=== PATIENT | male | born 1960 ===

== ENCOUNTER → 2018-01-16 | Outpatient (CLI) | payer OTHER ==
[2018-01-16 11:59] LABS: PLATELET COUNT, AUTOMATED 303 K/uL (150-450)
--- NOTE | 2018-01-16 13:58 | EKG ---
FACILITY: PATIENT NAME: HOLLIS ALONZO : [id number] MR: [id number] V: [id number] EXAM DATE: ORDERING PHYSICIAN: chester TECHNOLOGIST: MITA Howard Reason : PRE-OP Blood Pressure : / mmHG Vent. Rate : 073 BPM Atrial Rate : 073 BPM P-R Int : 142 ms QRS Dur : 080 ms QT Int : 386 ms P-R-T Axes : 022 -06 045 degrees QTc Int : 425 ms Sinus rhythm Borderline left axis No acute appearing findings No previous ECGs available Confirmed by RENETTA LACKEY ([id number]) on 01/16/2018 3:50:14 PM Referred By: CHESTER Confirmed By:RENETTA LACKEY
== END ==
LOC: LAB 11:43
PROVIDERS: ATTEND Anesthesiology
DX: Z01.812 Encounter for preprocedural laboratory examination (principal); Z01.810 Encounter for preprocedural cardiovascular examination; M79.642 Pain in left hand
CPT/HCPCS: 36415; 82310; 82374; 82435; 82565; 82947; 84132; 84295; 84520; 85025; 93005

== ENCOUNTER → 2018-01-24 | Outpatient (REF) | payer OTHER | LOC: ZZSENDIN 13:35 | PROVIDERS: ATTEND Orthopaedic Surgery Hand Surgery | DX: M85.642 Other cyst of bone, left hand (principal) | CPT/HCPCS: 88304 ==

== ENCOUNTER → 2018-12-21 | Outpatient (CLI) | payer OTHER ==
[2018-12-21 08:42] LABS: PLATELET COUNT, AUTOMATED 312 K/uL (150-450)
--- NOTE | 2018-12-21 09:43 | EKG ---
FACILITY: [facility] PATIENT NAME: HOLLIS ALONZO : [id number] MR: [id number] V: [id number] EXAM DATE: ORDERING PHYSICIAN: DHARMESH VEGA TECHNOLOGIST: ADRIEL Test Reason : PRE OP Blood Pressure : / mmHG Vent. Rate : 086 BPM Atrial Rate : 086 BPM P-R Int : 142 ms QRS Dur : 076 ms QT Int : 372 ms P-R-T Axes : 066 -07 075 degrees QTc Int : 445 ms Normal sinus rhythm Normal ECG When compared with ECG of 16-JAN-2018 11:59, No significant change was found Confirmed by Dane Haynes ([id number]) on 12/21/2018 11:08:36 PM Referred By: SILVIA Confirmed By:Dane Holly
== END ==
LOC: LAB 08:23
PROVIDERS: ATTEND Anesthesiology
DX: Z01.812 Encounter for preprocedural laboratory examination (principal); Z01.810 Encounter for preprocedural cardiovascular examination; M79.642 Pain in left hand
CPT/HCPCS: 36415; 82040; 82247; 82310; 82374; 82435; 82565; 82947; 84075; 84132; 84155; 84295; 84450; 84460; 84520; 85025; 93005